=== PATIENT | female | born 1950 | race Caucasian/White ===

== ENCOUNTER → 2020-09-19 | Day surgery (SDC) | payer MEDICARE, OTHER ==
[~2020-09-19] MED LIST: BUPROPION HCL100 MG PO; BUSPIRONE HCL15 MG PO; ELIQUIS5 MG PO; MECLIZINE HCL25 MG PO; PROPRANOLOL HCL20 MG PO; PROTONIX20 MG PO; ROBAXIN 750 MG750 MG PO; SENNA8.6 MG PO; TOLTERODINE TART2 MG PO; TOPAMAX 25 MG T25 MG PO; ZOLOFT100 MG PO
== END | disposition home or self-care (01) ==
LOC: OR 07:16
DX: K29.50 Unspecified chronic gastritis without bleeding (principal); K31.9 Disease of stomach and duodenum, unspecified; K21.9 Gastro-esophageal reflux disease without esophagitis; K31.1 Adult hypertrophic pyloric stenosis; R63.3 Feeding difficulties; D68.9 Coagulation defect, unspecified; N17.9 Acute kidney failure, unspecified; J96.00 Acute respiratory failure, unspecified whether with hypoxia or hypercapnia; G20 Parkinson's disease; I48.91 Unspecified atrial fibrillation; F41.9 Anxiety disorder, unspecified; F32.9 Major depressive disorder, single episode, unspecified; M79.7 Fibromyalgia; Z79.01 Long term (current) use of anticoagulants; Z79.899 Other long term (current) drug therapy; Z79.891 Long term (current) use of opiate analgesic; Z93.1 Gastrostomy status
CPT/HCPCS: J2704; J7040

== ENCOUNTER → 2020-10-10 | Outpatient (CLI) | payer MEDICARE, OTHER | LOC: KOH-I 13:25 | DX: G91.9 Hydrocephalus, unspecified (principal); Z98.2 Presence of cerebrospinal fluid drainage device | CPT/HCPCS: 70450 ==